=== PATIENT | female | born 1990 | race Caucasian/White ===

== ENCOUNTER 2023-09-17 21:07 | Emergency (ER) | payer OTHER, SELFPAY ==
[2023-09-17 21:30] VITALS: BP 121/72; PULSE 82; RESP 16; TEMP 36.5; O2SAT 97; BMI 29.8
--- NOTE | 2023-09-17 23:43 | DI.RAD.S_ITS ---
PROCEDURE: XR KUB INDICATIONS: no BM TECHNIQUE: One view of the abdomen acquired. COMPARISON: None. FINDINGS: Surgical changes and devices: Surgical clips in right upper quadrant compatible with prior cholecystectomy. Surgical clips in the lower pelvis bilaterally. Bowel: Bowel gas pattern is nonobstructive. Moderate amount of fecal material seen in the region of the ascending colon. Soft tissues: No suspicious abdominal calcifications. Visualized solid organ contours appear normal in size. Bones: No suspicious bony lesions. IMPRESSION: Nonobstructive bowel gas pattern. Moderate fecal burden seen in the ascending colon. Dictated by: German Munoz M.D. on 09/18/2023 at 1:04 Approved by: German Munoz M.D. on 09/18/2023 at 1:05
--- NOTE | 2023-09-17 23:52 | ED_ITS ---
HPI - Abdominal Pain General Chief Complaint: Abdominal Pain Stated Complaint: Constipation/bowel obstruction/ 1month Time Seen by Provider: 09/17/23 21:27 Source: patient Mode of arrival: Ambulatory History of Present Illness HPI narrative: 32yoF presents with constipation. States she has had to strain for BM, but has rectal pain when trying to pass hard bowel movements. 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 No home therapies attempted prior to arrival. Related Data Allergies Allergy/AdvReac Type Severity Reaction Status Date / Time No Known Drug Allergies Allergy Verified 09/18/23 01:13 Review of Systems Review of Systems Narrative: Negative except as noted above Patient History Medical History (Updated 09/18/23 @ 03:49 by Syl Dawson MD) Opiate abuse, continuous Exam Initial Vital Signs Initial Vital Signs: Vital Signs Temperature 97.7 F 09/17/23 21:30 Pulse Rate 82 09/17/23 21:30 Respiratory Rate 16 09/17/23 21:30 Blood Pressure 121/72 09/17/23 21:30 Pulse Oximetry 97 09/17/23 21:30 Oxygen Delivery Method Room Air 09/17/23 21:30 Const: Awake, alert, no acute distress, appears older than stated age Cardiac: regular rate, regular rhythm RESP: unlabored, clear bilaterally, no wheezing GI: Atraumatic, soft, nontender, nondistended, no rebound, no guarding Rectal: [employer] present, no hemorrhoids, no fissures MSK: Atraumatic, full range of motion, pulses equal Skin: Warm, Dry, intact, no rashes Neuro: AO x3, CN II-XII grossly intact, moves all extremities Course Course Course Narrative: Patient is nontoxic in appearance presenting for constipation. Abdomen is soft, no reproducible tenderness to palpation. No fissures or hemorrhoids on rectal exam. KUB reviewed, she does have significant stool burden but no obstruction. Patient was given numerous p.o. laxatives, however prior to receiving all of her medications I was informed by nursing staff that the patient became very angry that all we were doing was giving her laxatives and decided to leave the emergency department prior to receiving any discharge paperwork. Orders Ordered: ED Orders 09/17/23 23:43 XR KUB Stat Discontinued Medications Lactulose (Lactulose 20 Gm/30 Ml Solution) 20 gm PO NOW ONE Stop: 09/17/23 23:54 Last Admin: 09/18/23 00:14 Dose: 20 gm Documented By: UMU Lidocaine HCl (Lidocaine Jelly 2% 5 Ml) 1 applic TOP NOW ONE Stop: 09/18/23 01:11 Last Admin: 09/18/23 01:22 Dose: Not Given Documented By: FEI Polyethylene Glycol (Polyethylene Glycol 3350 17 Gm Powd.Pack) 17 gm PO NOW ONE Stop: 09/17/23 23:54 Last Admin: 09/18/23 00:16 Dose: 17 gm Documented By: UMU Polyethylene Glycol/Electrolytes ([id number]/Sod Sulf,Bicarb,Cl/Kcl 4,000 Ml Solution) 4,000 ml PO NOW ONE Stop: 09/18/23 01:10 Last Admin: 09/18/23 01:22 Dose: Not Given Documented By: FEI Sennosides (Sennosides 8.6 Mg Tablet) 17.2 mg PO NOW ONE Stop: 09/17/23 23:55 Last Admin: 09/18/23 00:15 Dose: 17.2 mg Documented By: UMU Vital Signs Vital signs: Vital Signs - 8 hr 09/17/23 21:30 09/18/23 00:47 09/18/23 00:47 Temperature 97.7 F Pulse Rate 82 60 Respiratory Rate 16 Blood Pressure 121/72 109/63 Pulse Oximetry 97 100 Oxygen Delivery Method Room Air 09/18/23 01:00 09/18/23 01:00 Temperature Pulse Rate 60 Respiratory Rate Blood Pressure 104/59 L Pulse Oximetry 100 Oxygen Delivery Method Discharge Plan Departure Patient Disposition: Home Clinical Impression: Constipation Instructions: DI for Constipation Activity Restrictions/Additional Instructions: Make sure to drink plenty of fluids. Your x-ray does not show findings concerning for a bowel obstruction. Take MiraLax daily with goal of 1 soft bowel movement per day. Stand Alone Forms: Patient Portal/API
[2023-09-18] MEDS: LACTULOSE 20 GM/30 ML SOLUTION PO (00:14)
[2023-09-18] MEDS: SENNOSIDES 8.6 MG TABLET 17.2 MG PO (00:15)
[2023-09-18] MEDS: polyethylene glycoL 3350 17 GM POWD.PACK PO (00:16)
[2023-09-18 00:47] VITALS: BP 109/63; PULSE 60; O2SAT 100
[2023-09-18 01:00] VITALS: BP 104/59; PULSE 60; O2SAT 100
--- NOTE | 2023-09-18 01:16 | PC.NURSE ---
Patient ambulatory to bathroom, then returned with urine sample and obviously upset stating to staff at nurses station that she is going to get dressed and leave. Minutes later patient exits room walking towards lobby door, staff encouraged patient to wait for medications ordered, patient declined, stating, I'm not taking more laxatives! Patient continued walking out and exited ED without discharge AVS. aware.
== END 2023-09-18 01:22 | disposition home or self-care (01) ==
PROVIDERS: Emergency Provider Emergency Medicine
DX: K59.00 Constipation, unspecified (principal)
CPT/HCPCS: 74018; 99283